=== PATIENT | female | born 1940 ===

== ENCOUNTER 2017-04-01 13:35 | Emergency (ER) | payer OTHER ==
[2017-04-01 13:51] VITALS: BP 171/74; PULSE 89; RESP 20; TEMP 98; O2SAT 97
--- NOTE | 2017-04-01 14:51 | C.PDOC ---
History Of Present Illness 76 y/o female presents to ED with complaints of right knee pain after she slipped and fell onto it approx 1 week ago. Patient has had persistent pain since then. She denies other injuries, sensory changes, fever, rash, weakness. Time Seen by Provider: 04/01/17 13:54 Chief Complaint (Nursing): Lower Extremity Problem/Injury History Per: Patient History/Exam Limitations: no limitations Onset/Duration Of Symptoms: Days Current Symptoms Are (Timing): Still Present Severity: Mild - Knee Description Of Injury: Fell Past Medical History Reviewed: Historical Data, Nursing Documentation, Vital Signs Vital Signs: Last Vital Signs Temp 98 F 04/01/17 13:50 Pulse 89 04/01/17 13:50 Resp 20 04/01/17 13:50 BP 171/74 H 04/01/17 13:50 Pulse Ox 97 04/01/17 15:10 - Medical History PMH: No Chronic Diseases Family History: States: No Known Family Hx - Social History Hx Alcohol Use: No Hx Substance Use: No - Immunization History Hx Tetanus Toxoid Vaccination: No Hx Influenza Vaccination: No Hx Pneumococcal Vaccination: No Review Of Systems Except As Marked, All Systems Reviewed And Found Negative. Constitutional: Negative for: Fever Cardiovascular: Negative for: Chest Pain Respiratory: Negative for: Shortness of Breath Musculoskeletal: Positive for: Leg Pain (right knee pain ) Skin: Negative for: Rash Neurological: Negative for: Weakness, Numbness Physical Exam - Physical Exam Appears: Well, Non-toxic, No Acute Distress, Other (Comfortable) Skin: Normal Color, Warm, Dry, No Rash Head: Normacephalic Oral Mucosa: Moist Cardiovascular: Rhythm Regular Respiratory: Normal Breath Sounds, No Rales, No Rhonchi, No Wheezing Extremity: Tenderness (Mild tenderness to palpation around patella), No Calf Tenderness, Capillary Refill (<2 seconds all digits ), No Deformity, Swelling ( mild, Around patella ), Other (ROM intact at B/L knees, no erythema or warmth to touch at right patellar area) Extremity: Bilateral: Normal Color And Temperature Pulses: Left Dorsalis Pedis: Normal, Right Dorsalis Pedis: Normal Neurological/Psych: Oriented x3, Normal Motor, Normal Sensation Gait: Steady ED Course And Treatment O2 Sat by Pulse Oximetry: 97 (RA) Pulse Ox Interpretation: Normal - Other Rad right knee Xray X-Ray: Viewed By Me, Read By Radiologist Interpretation: Accession No. : [id number]. Patient Name / ID : BRIANNA Caceres / [id number]. Exam Date : 04/01/2017 14:23:00 ( Approved ). Study Comment : Sex / Age : F / 76Y. Creator : Priscila Drummond MD. Dictator : [employer]ug [employer] Operator : Academic Registrar : Priscila Drummond MD. Approver2 : Report Date : 04/01/2017 14:48:33. My Comment : . PROCEDURE: Right Knee Radiographs. HISTORY: COMPARISON: None available. FINDINGS: BONES: No acute displaced fracture. Tenting of the intercondylar notch. JOINTS: No dislocation. Chondrocalcinosis. Medial compartment joint space narrowing. JOINT EFFUSION: Small suprapatellar joint effusion. OTHER FINDINGS: None. IMPRESSION: Degenerative changes including chondrocalcinosis. Small suprapatellar joint effusion. No acute displaced fracture or dislocation identified. If symptoms persist or if there is continued clinical concern, x- ray follow-up in 7-10 days should be considered. Progress Note: Patient given PO tylenol. Xray of right knee ordered and reviewed. Xray (-) for acutew fx/dislocation. Haroldo wrap applied to right knee by ED nurse. Patient given Rx for Naprosyn, and instructed to follow up with orthopedics within 1 week. She is ambulating normally in the ED, and understands she should return to ED if symptoms worsen. Reevaluation Time: 15:15 Reassessment Condition: Improved Disposition Counseled Patient/Family Regarding: Studies Performed, Diagnosis, Need For Followup, Rx Given - Disposition Referrals: [facility] [Outside] [facility] [Outside] Dionte Werner III, MD [Staff Provider] - Disposition: HOME/ ROUTINE Disposition Time: 15:15 Condition: STABLE Additional Instructions: SEGUIMIENTO CON ORTOPEDIA DENTRO DE 1 SEMANA USE EL MEDICAMENTO DEL DOLOR NATO SEA NECESARIO DEVUELVA A LA NING DE EMERGENCIA SI LOS SNTOMAS EMPEORARAN Prescriptions: Naproxen [Naprosyn Tab] 375 mg PO BID PRN #20 tab PRN Reason: pain Instructions: Knee Sprain (ED), Osteoarthritis (ED) Forms: [employer] (Turkish) Print Language: BULGARIAN - POA Present On Arrival: None - Clinical Impression Clinical Impression: Right knee sprain, Arthritis of knee - Scribe Statement The provider has reviewed the documentation as recorded by the Scribpamella Roe All medical record entries made by the Scribe were at my direction and personally dictated by me. I have reviewed the chart and agree that the record accurately reflects my personal performance of the history, physical exam, medical decision making, and the department course for this patient. I have also personally directed, reviewed, and agree with the discharge instructions and disposition.
== END 2017-04-01 15:22 | disposition home or self-care (01) ==
LOC: C.ER 13:35
DX: S83.91XA Sprain of unspecified site of right knee, initial encounter (principal); W01.0XXA Fall on same level from slipping, tripping and stumbling without subsequent striking against object, initial encounter; Y93.9 Activity, unspecified; Y92.9 Unspecified place or not applicable; M13.861 Other specified arthritis, right knee